=== PATIENT | female | born 1970 | race Caucasian/White ===

== ENCOUNTER → 2022-08-12 16:08 | Outpatient (BNVA) | payer OTHER, SELFPAY | PROVIDERS: Family Provider Family Medicine; Visit Provider Emergency Medicine | DX: M79.662 Pain in left lower leg (principal); S89.92XA Unspecified injury of left lower leg, initial encounter; S89.91XA Unspecified injury of right lower leg, initial encounter; M79.672 Pain in left foot; W19.XXXA Unspecified fall, initial encounter | CPT/HCPCS: 73590; 73630 ==

== ENCOUNTER 2023-03-20 10:04 | Outpatient (CLI) | payer OTHER, SELFPAY ==
--- NOTE | 2023-03-20 10:14 | MM_ITS ---
WS: [id number] BILATERAL SCREENING DIGITAL TOMOSYNTHESIS MAMMOGRAM WITH CAD HISTORY: SCREENING COMPARISON: 07/24/2021 and 09/15/2019 Bilateral CC and MLO views with tomosynthesis and synthetic mammography submitted. Computer aided det ection analyzed. Breast composition: There are scattered areas of fibroglandular density. No suspicious masses, microc alcifications or architectural distortion. Biopsy clip in the central RIGHT breast. MM/[place] [id number] IMPRESSION: BI-RADS: 2-Benign FOLLOW UP: 1 Year Follow-up
== END 2023-03-20 10:05 | disposition home or self-care (01) ==
PROVIDERS: PCP Family Medicine; Visit Provider Family Medicine
DX: Z12.31 Encounter for screening mammogram for malignant neoplasm of breast (principal)
CPT/HCPCS: 77063; 77067

== ENCOUNTER → 2023-03-30 12:59 | Outpatient (BNVA) | payer OTHER, SELFPAY | PROVIDERS: PCP Family Medicine; Referring Provider Family Medicine; Visit Provider Student in an Organized Health Care Education/Training Program | DX: M67.441 Ganglion, right hand (principal) | CPT/HCPCS: 73130 ==

== ENCOUNTER 2023-04-08 07:27 | Day surgery (SDC) | payer OTHER, SELFPAY ==
[2023-04-07 10:48] VITALS: BMI 20.5
[2023-04-08 08:01] VITALS: BP 112/70; PULSE 67; RESP 18; TEMP 36.4; O2SAT 97
--- NOTE | 2023-04-08 08:06 | W.PM.OPSUD ---
Surgery/Procedure H&P Update DATE OF PROCEDURE: April 08, 2023 DATE H&P PERFORMED: 03/30/23 CHANGES TO PREVIOUS DOCUMENTATION: None. No changes in patient's H&P since office visit. Patient is ready to proceed with right dorsal hand mass excision. PREOP DIAGNOSIS: right dorsal hand mass/cyst PRIMARY INDICATION FOR PROCEDURE: Right dorsal hand mass/cyst PLANNED PROCEDURE: Operation Date: 04/08/23 09:10 Proposed Procedures p : Right hand mass excision: 84153,M67.441(Right) - Thiago Georges DO
[2023-04-08] MEDS: ketorolac 30 mg/mL INJ IVP (08:09)
[2023-04-08] MEDS: acetaminophen 1,000 MG/100 ML PIGGYBACK 400 MG IV (08:10)
[2023-04-08] MEDS: sodium chloride 0.9% 1,000 ML 30 ML IV (08:10)
--- NOTE | 2023-04-08 08:35 | ANES.PREANE2 ---
Pre-Anesthetic Assessment Height/Weight: Height 1.73 m Weight 61.235 kg Temp Pulse Resp BP Pulse Ox O2 Del Method 97.5 F L 67 18 112/70 97 Room Air 04/08/23 08:01 04/08/23 08:01 04/08/23 08:01 04/08/23 08:01 04/08/23 08:01 04/08/23 08:24 Preop Diagnosis: right dorsal hand mass/cyst Operation Date: 04/08/23 09:10 Proposed Procedures p : Right hand mass excision: 24109,M67.441(Right) - Thiago Georges, Familial anesthetic complications: none Was Beta Claire taken within 24 hours: N/A Was Clonidine taken within 24 hours: N/A Last intake: Intake Last Liquid Date 04/07/23 Last Liquid Time 20:30 Last Solid Date 04/07/23 Last Solid Time 16:30 Social Tobacco and No alcohol Exam alert, oriented x 3, clear to auscultation bilaterally and regular rate & rhythm Airway Submandibular: within normal limits Cervical ROM: within normal limits Mallampati: Class II Dentition: full History/ROS No significant history except as noted Anesthetic Plan ASA status: 2 Anesthesia: Choice Medications/Allergies Home Medications Medication Instructions Recorded Confirmed Last Taken Type No Known Home Medications 08/12/22 04/07/23 Unknown History Allergies Allergy/AdvReac Type Severity Reaction Status Date / Time No Known Allergies Allergy Unverified 03/30/23 13:07 Current Medications Generic Name Dose Route Start Last Admin Trade Name Freq PRN Reason Stop Dose Admin Sodium Chloride 1,000 mls @ 30 mls/hr 04/08/23 08:00 04/08/23 08:10 Sodium Chloride 0.9% IV 04/09/23 07:59 30 mls/hr .Q24H SAMIR Administration PFSH Anesthesia Social History Smoking and tobacco status: current every day smoker Female Reproductive History Spontaneous abortions: No Data Anesthesia Cardiac Studies: No Data to Display
[2023-04-08] MEDS: ceFAZolin 2,000 MG in sodium chloride 0.9% (plus) 50 ML 100 MG IV (09:50)
[2023-04-08] MEDS: lidocaine-epi 1% 20 mL INJ INJECTION (10:00)
[2023-04-08] MEDS: sodium bicarbonate 4.2% 0.5 mEq/mL SDV 5mL INTRADERMA (10:00)
[2023-04-08 10:33] VITALS: BP 106/86; PULSE 71; RESP 18; TEMP 36.1; O2SAT 94
[2023-04-08 10:36] VITALS: BP 117/73; PULSE 76; RESP 17; O2SAT 99
--- NOTE | 2023-04-08 10:37 | P.OP_ITS ---
Operative Report Date of procedure: April 08, 2023 Pre-op diagnosis: Preop Diagnosis right dorsal hand mass/cyst Post-op diagnosis: Right hand lipoma Procedure done: Right hand mass/lipoma excision Specimens removed/disposition: Right hand mass/lipoma sent for pathology Pathology: Right hand mass/lipoma sent for pathology Surgeon: Thiago Georges DO Regional Merchandising Manager: None Anesthesia: MAC (Local) Estimated blood loss: 2 cc 6 minutes IV fluids: See anesthesia record Complications: None Findings: See operative report narrative Condition: stable Disposition: same day Brief History: Patient is a pleasant 52-year-old female who has a mass to the right hand. This is slowly gotten bigger in size and its bothering her. We talked about treatme nt options versus nonoperative and operative intervention. The soft mobile mass appears benign in nature and cystic-like. As result talked about treatment options as far as risk benefits complication alternatives with surgery. Understanding risk of surgery through shared decision making she would like to proceed with a right hand cyst/mass excision. All questions been answered at this time. Procedure: Patient seen evaluated in the preoperative holding area. Consent was reviewed and signed with patient. Correct extremity was marked. Patient was seen evaluated by anesthesia once cleared for surgery patient was taken back to the operative suite. Patient was transported on the OR table all bony promises well-padded patient was appropriate secured to the bed. Armboard was applied to the right upper extremity. Nonsterile tourniquet was applied to the right upper arm. Patient underwent anesthesia per the anesthesia part once appropriately anesthetized right upper extremities prepped and draped in sterile orthopedic fashion. Final timeout performed. Patient received appropriate preoperative antibiotics. Esmarch tourniquet was used exsanguinate the right upper extremity and tourniquet was insufflated to 250 mmHg. Patient's dorsal hand mass was identified at the base of the middle finger. I performed a standard dorsal curvilinear incision around the MP joint centering this over the mass. Sharp scalpel incision was made only through skin and subcutaneous tissue developed full-thickness skin flaps as well as utilize Li ttler dissection scissors immediately encountered a fatty lipoma. This did not appear to be cystic in nature. This is not adhered to a joint and was above the extensor gao. At this point time 8 hours later dissection scissors to mobilize and dissect both proximally distally as well as radially and ulnarly. I then worked from distal to proximal and utilizing bipolar electrocautery elevated thi s off the extensor retinaculum into the webspace and remove this to its entirety atraumatically lipoma size was 3 cm x 2 cm x 0.5 cm. This was then sent for pathology for final definitive diagnosis. I then inspected the joint as well as extensor mechanism this was all intact. I then thoroughly irrigated the wound bed. Tourniquet was deflated hemostasis satisfactory. I then closed the incision with simple interrupted nylon suture for skin. A bulky soft dressing was then applied of Xeroform 4 x 4's Curlex and an Raúl wrap. Patient was then awakened from anesthesia and taken to PACU in stable condition. Disposition: Patient taken to PACU in stable condition recovering well. Patient will receive appropriate discharge instruction as well as pain medication postoperatively will be allowed weightbearing as tolerated to the right hand. Patient follow-up in the orthopedic office in 2 weeks. Patient understands agrees with current plan. Questions answered.
--- NOTE | 2023-04-08 10:37 | PM.OP2 ---
Brief Operative Note Date of procedure: 04/08/23 Pre-op diagnosis: Right hand mass/cyst Post-op diagnosis: same (Right hand mass (lipoma) Procedure Done: Right hand mass/lipoma excision (3 cm x 2 cm x 0.5 cm) Surgeon: Thiago Georges Estimated blood loss (mL): 2 Complications: None Post-op Plan: Patient taken to PACU in stable condition recovering well. Patient will receive appropriate discharge instructions as well as pain medication postoperatively. We will follow-up in the orthopedic office in 2 weeks. Patient understands agrees with current plan. Questions answered. Will be allowed weightbearing as tolerated to the right upper extremity. Condition: stable Disposition: same day Coding Level of Care Code Acute Code for Kellie Bailey
--- NOTE | 2023-04-08 10:37 | PM.PACU ---
PACU note Narrative: Patient taken to PACU in stable condition recovering well dressings on in place clean dry and intact. Patient's fingertips are warm well perfused with capillary refill less than 2 seconds. Patient received local anesthesia and has decreased sensation to the right hand particular right middle finger. Patient is able to wiggle fingers. Exam: awake Disposition: discharged
[2023-04-08 10:45] VITALS: BP 133/73; PULSE 75; RESP 18; TEMP 36.3; O2SAT 96
[2023-04-08 11:00] VITALS: BP 117/79; PULSE 74; RESP 18; O2SAT 99
--- NOTE | 2023-04-08 15:28 | ANE.PACU2 ---
Inpatient post-anesthesia follow up: Airway intact: Yes Vital signs: Temperature 97.4 F Pulse Rate 74 Respiratory Rate 18 Blood Pressure 117/79 Pulse Oximetry 99 Oxygen Delivery Me thod Room Air Oxygen Flow Rate Fraction of Inspir ed Oxygen Hydration adequate: Yes Nausea and vomiting: No Pain level: 1 Mental status: Baseline
== END 2023-04-08 11:00 | disposition home or self-care (01) ==
PROVIDERS: PCP Family Medicine; Visit Provider Student in an Organized Health Care Education/Training Program
PROC: (CPT 26111; principal; 2023-04-08 09:00)
DX: D17.79 Benign lipomatous neoplasm of other sites (principal); F17.200 Nicotine dependence, unspecified, uncomplicated
CPT/HCPCS: 26111; 88307; J0131; J0690; J1885; J2704; J7030

== ENCOUNTER 2024-11-24 10:58 | Emergency (ER) | payer OTHER, SELFPAY ==
--- NOTE | 2024-11-24 10:59 | XRR_ITS ---
PROCEDURE INFORMATION: Exam: XR Left Hand Exam date and time: 11/24/2024 11:51 AM Age: 53 years old Clinical indication: Pain; Hand; Left; Additional info: Injury TECHNIQUE: Imaging protocol: Radiologic exam of the left hand. Views: 3 or more views. COMPARISON: No relevant prior studies available. FINDINGS: Bones/joints: Osseous structures are intact. No fracture or malalignment. Visualized joint surfaces are preserved. Soft tissues: Unremarkable. XR/XR hand LT min 3V* [id number] IMPRESSION: Negative exam. No acute bony abnormalities.
[2024-11-24 11:17] VITALS: BP 112/74; PULSE 84; RESP 18; TEMP 36.6; O2SAT 97; BMI 19.0
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
[2024-11-24] MEDS: HYDROcodone-acetaminophen 5-325 mg Tablet 1 TAB PO (11:34)
[2024-11-24 12:11] VITALS: PULSE 83; O2SAT 99
== END 2024-11-24 12:11 | disposition home or self-care (01) ==
PROVIDERS: Emergency Provider Emergency Medicine; PCP Family Medicine
DX: S63.615A Unspecified sprain of left ring finger, initial encounter (principal); X58.XXXA Exposure to other specified factors, initial encounter; Z72.0 Tobacco use
CPT/HCPCS: 73130; 99283

== ENCOUNTER 2024-12-15 12:48 | Outpatient (CLI) | payer OTHER, SELFPAY ==
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
== END 2024-12-15 12:49 | disposition home or self-care (01) ==
LOC: RAD 12:49
PROVIDERS: PCP Family Medicine; Visit Provider Family Medicine
DX: S69.92XS Unspecified injury of left wrist, hand and finger(s), sequela (principal); X58.XXXS Exposure to other specified factors, sequela; R93.6 Abnormal findings on diagnostic imaging of limbs
CPT/HCPCS: 73130

== ENCOUNTER → 2024-12-27 08:45 | Outpatient (BNVA) | payer OTHER, SELFPAY | PROVIDERS: PCP Family Medicine; Visit Provider Student in an Organized Health Care Education/Training Program | DX: S62.623A Displaced fracture of middle phalanx of left middle finger, initial encounter for closed fracture; W49.02XA String or thread causing external constriction, initial encounter; Y93.79 Activity, other specified sports and athletics | CPT/HCPCS: 73130 ==

== ENCOUNTER 2024-12-28 06:51 | Day surgery (SDC) | payer OTHER, SELFPAY ==
[2024-12-28 06:59] VITALS: RESP 18; BMI 19.0
[2024-12-28] MEDS: sodium chloride 0.9% 500 ML 15 ML IV (07:04)
--- NOTE | 2024-12-28 07:47 | ANES.PREANE2 ---
Pre-Anesthetic Assessment Height/Weight: Height 1.73 m Weight 56.699 kg Resp O2 Del Method 18 Room Air 12/28/24 06:59 12/28/24 06:59 Operation Date: 12/28/24 08:00 Proposed Procedures p Colonoscopy 78348, G0121, Z12.11(Not Applicable) - Darío Huizar DO Familial anesthetic complications: None Was Beta Claire taken within 24 hours: N/A Was Clonidine taken within 24 hours: N/A Last intake: Intake Last Liquid Date 12/27/24 Last Liquid Time 20:00 Last Solid Date 12/26/24 Last Solid Time 17:00 Social No alcohol and No tobacco Exam alert, oriented x 3, clear to auscultation bilaterally and regular rate & rhythm Airway Mallampati: Class I Dentition: full Anesthetic Plan ASA status: 1 Anesthesia: MAC Risk of > 500 ml blood loss (7ml/kg in children): No Medications/Allergies Home Medications Medication Instructions Recorded Confirmed Last Taken Type No Known Home Medications 12/27/24 12/28/24 Unknown History Allergies Allergy/AdvReac Type Severity Reaction Status Date / Time No Known Allergies Allergy Verified 12/27/24 09:05 Current Medications Generic Name Dose Route Start Last Admin Trade Name Freq PRN Reason Stop Dose Admin Sodium Chloride 500 mls @ 15 mls/hr 12/28/24 06:55 12/28/24 07:04 Sodium Chloride 0.9% IV 12/29/24 06:54 15 mls/hr .Q24H PRN Administration COLONOSCOPY FLUIDS PFSH Anesthesia Social History Smoking and tobacco/nicotine status: never used tobacco/nicotine Female Reproductive History Spontaneous abortions: No Data Anesthesia Cardiac Studies: No Data to Display
--- NOTE | 2024-12-28 08:03 | W.PM.OPSUD ---
Surgery/Procedure H&P Update DATE OF PROCEDURE: December 28, 2024 DATE H&P PERFORMED: 12/22/24 H&P UPDATE INFORMATION: I have reviewed H&P completed within last 30 days, I have examined patient prior to procedure and No changes to prior documentation PLANNED PROCEDURE: Operation Date: 12/28/24 08:00 Proposed Procedures p Colonoscopy 18552, G0121, Z12.11(Not Applicable) - Darío Huizar, DO
[2024-12-28 08:29] VITALS: BP 103/59; PULSE 80; RESP 14; TEMP 36.1; O2SAT 95
[2024-12-28 08:44] VITALS: BP 108/58; PULSE 76; RESP 16; O2SAT 98
--- NOTE | 2024-12-28 09:00 | ANE.PACU2 ---
Inpatient post-anesthesia follow up: Airway intact: Yes Vital signs: Temperature 97.0 F Pulse Rate 76 Respiratory Rate 16 Blood Pressure 108/58 Pulse Oximetry 98 Oxygen Delivery Me thod Room Air Oxygen Flow Rate Fraction of Inspir ed Oxygen Hydration adequate: Yes Nausea and vomiting: No Pain level: 1 Mental status: Baseline
== END 2024-12-28 09:02 | disposition home or self-care (01) ==
PROVIDERS: PCP Family Medicine; Visit Provider Surgery
PROC: 0DJD8ZZ Inspection of Lower Intestinal Tract, Via Natural or Artificial Opening Endoscopic (ICD-10-PCS; CPT 45378; principal; 2024-12-28 08:00)
DX: Z12.11 Encounter for screening for malignant neoplasm of colon (principal); D12.4 Benign neoplasm of descending colon; K64.8 Other hemorrhoids
CPT/HCPCS: 45380; 45385; 88305; J1885; J2704; J7040

== ENCOUNTER 2025-01-02 11:30 | Outpatient (CLI) | payer OTHER, SELFPAY ==
--- NOTE | 2025-01-02 11:40 | MM_ITS ---
WS: [id number] BILATERAL SCREENING DIGITAL TOMOSYNTHESIS MAMMOGRAM WITH CAD HISTORY: SCREENING COMPARISON: 03/20/2023, 01/24/2021 Bilateral CC and MLO views with tomosynthesis and synthetic mammography submitted. Computer aided det ection analyzed. Breast composition: There are scattered areas of fibroglandular density. No suspicious masses, microc alcifications or architectural distortion. Biopsy clip 6:00 RIGHT breast. There are additional benign calcifications scattered throughout the RIGHT breast. No suspicious mass or distortion. MM/MM scr BI tomosynthesis [id number] IMPRESSION: BI-RADS: 2 - Benign. FOLLOW UP: 1 Year Follow-up
== END 2025-01-02 11:31 | disposition home or self-care (01) ==
PROVIDERS: Visit Provider Family Medicine
DX: Z12.31 Encounter for screening mammogram for malignant neoplasm of breast (principal); R92.323 Mammographic fibroglandular density, bilateral breasts; R92.1 Mammographic calcification found on diagnostic imaging of breast
CPT/HCPCS: 77063; 77067

== ENCOUNTER 2025-01-03 10:44 | Outpatient (RCR) | payer OTHER, SELFPAY | END 2025-01-27 23:59 | disposition home or self-care (01) | LOC: SOT 10:44 | PROVIDERS: Visit Provider Student in an Organized Health Care Education/Training Program | DX: S62.625A Displaced fracture of middle phalanx of left ring finger, initial encounter for closed fracture (principal); X58.XXXA Exposure to other specified factors, initial encounter | CPT/HCPCS: 97022; 97110; 97165; 97530 ==

== ENCOUNTER → 2025-03-08 15:50 | Outpatient (BNVA) | payer OTHER, SELFPAY | PROVIDERS: PCP Family Medicine; Visit Provider Obstetrics & Gynecology | DX: N95.1 Menopausal and female climacteric states (principal) | CPT/HCPCS: 80053; 83001; 84443; 85025 ==

== ENCOUNTER → 2025-04-05 09:52 | Outpatient (BNVA) | payer OTHER, SELFPAY | PROVIDERS: PCP Family Medicine; Visit Provider Obstetrics & Gynecology | DX: N85.2 Hypertrophy of uterus (principal) | CPT/HCPCS: 76830 ==